=== PATIENT | male | born 1995 | race Two or more races ===

== ENCOUNTER → 2022-08-02 10:37 | Outpatient (BNVA) | payer OTHER, SELFPAY | PROVIDERS: Visit Provider Physician Assistant | DX: M79.671 Pain in right foot (principal); M76.61 Achilles tendinitis, right leg | CPT/HCPCS: 99204 ==

== ENCOUNTER → 2022-08-09 09:08 | Outpatient (BNVA) | payer OTHER, SELFPAY | PROVIDERS: Visit Provider Physician Assistant | DX: M79.671 Pain in right foot (principal); M76.61 Achilles tendinitis, right leg | CPT/HCPCS: 99214 ==

== ENCOUNTER → 2022-08-23 09:43 | Outpatient (BNVA) | payer OTHER, SELFPAY | PROVIDERS: Visit Provider Physician Assistant | DX: M79.671 Pain in right foot (principal); M76.61 Achilles tendinitis, right leg | CPT/HCPCS: 99213 ==